=== PATIENT | female | born 1960 | race Caucasian/White ===

== ENCOUNTER → 2018-03-24 11:15 | Outpatient (CLI) | payer MEDICAID, SELFPAY ==
--- NOTE | 2018-03-24 11:12 | DI.REPORT_ITS ---
SYMPTOM/DIAGNOSIS: PAIN RIGHT SHOULDER: Comparison is made with February 03. 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 Spurring is seen at the AC joint. There has been no change from the previous exam.
== END ==
PROVIDERS: PCP Physician Assistant; Visit Provider Orthopaedic Surgery
DX: M25.511 Pain in right shoulder (principal); Z96.611 Presence of right artificial shoulder joint
CPT/HCPCS: 73030

== ENCOUNTER 2023-10-07 08:48 | Emergency (ER) | payer MEDICAID, SELFPAY ==
[2023-10-07 08:51] VITALS: BP 118/84; PULSE 66; RESP 18; TEMP 36.7
--- NOTE | 2023-10-07 09:14 | W.ED.GENAD ---
HPI General Date/Time Provider Initiated Documentation: 10/07/23 09:02. HPI Narrative: 62 year-old female presents to ED today by POV/ambulating with a chief complaint of L thumb pain ongoing for 2 months, and polydipsia in the setting of t2DM non-insulin dependent, lost her test kits with onset chronically. Patient states she used to be a patient of Daryl Dahl PA-C and thinks he has transferred to the area, looking to resume care, and is awaiting orthopaedic visit for this ongoing L thumb pain. Quality described as pain in her thumb, nodule in flexor tendon, shortening of the thumb, pain up the dorsal forearm, no radiation to numbness/tingling, deformity, endorses mild swelling- for her other problem she characterizes as sometimes having sweats, feeling thirsty and just run down and wants to make sure her diabetes is under control. Severity is described as moderate. Palliating factors include had a brace but it wasn't helping. Provoking factors include nothing specific. Patient not anticoagulated. Related Data Home Medications Medication Instructions Recorded Confirmed albuterol sulfate 90 mcg/actuation 2 puff inhalation Q8H 10/07/23 10/07/23 aerosol inhaler diclofenac sodium 1 % topical gel 2 g topical QID #100 grams 10/07/23 empagliflozin 25 mg tablet 25 mg PO ONCE 10/07/23 10/07/23 (Jardiance) fluticasone 500 mcg-salmeterol 50 1 inh inhalation BID PRN 10/07/23 10/07/23 mcg/dose blistr powdr for inhalation (Advair Diskus) glimepiride 2 mg tablet mg 10/07/23 glimepiride 4 mg tablet 4 mg PO BID 10/07/23 10/07/23 magnesium oxide 250 mg PO DAILY 10/07/23 10/07/23 Previous Rx's Medication Instructions Recorded diclofenac sodium 1 % topical gel 2 g topical QID #100 grams 10/07/23 Allergies Allergy/AdvReac Type Severity Reaction Status Date / Time haloperidol [From Haldol] Allergy Severe PARALYSIS Unverified 10/07/23 08:58 haloperidol lactate Allergy Severe PARALYSIS Unverified 10/07/23 08:58 [From Haldol] Latex, Natural Rubber Allergy Intermediate Hives Unverified 10/07/23 08:58 Penicillins Allergy Intermediate Hives Unverified 10/07/23 08:58 Sulfa (Sulfonamide Allergy Unknown Hives Unverified 10/07/23 08:58 Antibiotics) morphine AdvReac Intermediate Nausea Unverified 10/07/23 08:58 General Stated Complaint: GenMedical KANDIS: 3 Review of Systems All systems reviewed & are unremarkable except as noted in HPI and below Exam Narrative Exam Narrative: GENERAL APPEARANCE: Well-nourished, non-toxic, awake and alert, atraumatic, no acute distress. SKIN: Warm, pink, dry, intact, without rashes/lesions/ulcerations. HEAD: Normocephalic, atraumatic, normal hair distribution for gender/age. EYES: Pupils PERRLA, EOMs intact without nystagmus, normal conjunctiva, no exudates on lids/lashes. ENT: Nares patent, no circumoral cyanosis, no facial swelling NECK: Supple, trachea midline, painless cervical ROM. LUNGS/CHEST: Non-labored respirations, normal A/P diameter, symmetrical expansion, no chest wall deformity HEART (CV/PV): Regular rate, L radial pulse 2+, no peripheral edema, no JVD. ABDOMEN: Soft, non-distended, no guarding. MSK: Normal ROM, no swelling/deformity to bilateral UEs or LEs, moving all extremities without weakness, no cyanosis, spine midline without tenderness, normal curvature. L Hand: No deformity, mild tenderness on the flexor aspect of the thumb with a small nodule in the flexor tendon, no anatomical snuffbox tenderness, range of motion intact in all fingers with slight limited to the left, no crepitus, no skin changes, no lesions, forearm benign NEURO: Mental Status AAOx4 - alert to person, place, time, events No facial droop, no forehead involvement. Motor: No focal weakness - strength 5/5 in bilateral UEs and LEs, proximal and distal, symmetric. Sensory: sensation intact to light touch globally. Gait normal: patient ambulated without ataxia into ED room. PSYCH: euthymic, cooperative, pleasant, appropriate speech Course Vital Signs Vital signs: Vital Signs Temperature 36.7 C 10/07/23 08:51 Pulse 66 10/07/23 08:51 Respiratory Rate 18 10/07/23 08:51 Blood Pressure 118/84 10/07/23 08:51 Temperature 36.7 C 10/07/23 08:51 Temperature Source Oral 10/07/23 08:51 Pulse 66 10/07/23 08:51 Respiratory Rate 18 10/07/23 08:51 Respiratory Effort Normal, Non-Labored 10/07/23 09:06 Respiratory Depth Normal 10/07/23 09:06 Respiratory Pattern Normal 10/07/23 09:06 Blood Pressure 118/84 10/07/23 08:51 Oxygen Delivery Method Room Air 10/07/23 08:51 Oxygen Flow Rate 0 10/07/23 08:51 Pain Level 10 10/07/23 09:11 Medical Decision Making This dictation utilizes [id number] dictation software and may contain unedited grammatical errors. 62 y/o F presents to ED today with a chief complaint of L thumb pain for 2 months, and request for diabetes check- non-insulin dependent, having occasional sweats and notes excessive thirst. Patient is awaiting orthopaedics and is requesting to be reconnected to her former PCP Daryl Dahl PA-C. Patients' medical history: Type 2 diabetes. Family and social history: [facility] when her eyes, she will return there in October. Pertinent exam findings / vital signs include L Hand: No deformity, mild tenderness on the flexor aspect of the thumb with a small nodule in the flexor tendon, no anatomical snuffbox tenderness, range of motion intact in all fingers with slight limited to the left, no crepitus, no skin changes, no lesions, forearm benign. Differential / pathologies of concern include de Quervain's tendinopathy, Dupuytren contracture of left, arthritis, DKA. Diagnostic studies of: -CBC, CMP, VBG, x-ray left hand. -CBC is benign with elevated hemoglobin possible hemoconcentration -CMP shows a glucose of 213, mildly elevated BUN likely in the setting of mild dehydration -VBG shows no acidosis -XR Hand shows degenerative changes. Interventions of: -Removable thumb spica, refer ortho, refer PCP N[facility]. ED Course/Assessment/Plan: 62-year-old female presents with 2 months of left wrist and thumb pain, has a palpable nodule in the flexor tendon of the thumb but also having some pain up the dorsum of the wrist suspicious for possible de Quervain's, there is no sign of acute fracture or skin changes or infectious etiology, she requests a check for her diabetes which shows hyperglycemia at 213 but no signs of DKA-I did provide a thumb spica splint and put her on the list to be seen by orthopedics as well as forwarded her chart to Modesto Aguirre PA-C to possibly resume primary care for her chronic diabetes. Findings not consistent with infectious tendinopathy, septic arthritis, DKA, fracture. Disposition of Tendinopathy of Left Hand. Patient verbalized understanding of the plan and return to ED criteria and engaged in shared decision making. Medical Records Medical records reviewed: Yes I reviewed the patient's medical records. Imaging Data Radiologic Study: Attestation: I personally reviewed and interpreted this imaging study as follows: Imaging: X-Ray Radiologist's impression: EXAM: XR HAND LT COMPLETE CLINICAL HISTORY: L base of thumb pain. TECHNIQUE: 2D digital imaging was performed. Three views. COMPARISON: No exams were available for comparison FINDINGS: BONES: No acute fracture is present. No bony destructive lesion is seen. 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 Chronic appearing deformity of the 5th metacarpal could be congenital versus old fracture deformity. JOINTS: No dislocation present. Degenerative changes of the interphalangeal joints and 1st carpal metacarpal joint. Degenerative mild lateral subluxation. SOFT TISSUE: Normal. IMPRESSION: Degenerative changes greatest at the 1st carpal metacarpal joint. Lab Data Lab results reviewed: Yes I reviewed the patient's lab results. Labs: Laboratory Tests Range/Units 10/07/23 09:20 WBC (4.4-10.8) 10^3/uL 6.60 RBC (3.93-5.22) 10^6/uL 5.81 H Hgb (11.2-15.7) g/dL 17.1 H Hct (36.0-46.0) % 51.4 H MCV (80-95) fL 89 MCH (27.0-33.0) pg 29.4 MCHC (32.0-36.0) % 33.3 RDW (11.7-14.6) % 12.0 Plt Count (130-400) 10^3/uL 286 MPV (8.0-11.0) fL 9.9 Immature Gran % 0.3 Neutrophils % 54.6 Lymphocytes % 33.5 Monocytes % 8.3 Eosinophils % 2.7 Basophils % 0.6 Nucleated RBC % (0.0-0.3) % 0.0 Absolute Neutrophils (1.2-6.7) 10^3/uL 3.60 Absolute Lymphocytes (1.2-3.4) 10^3/uL 2.21 Absolute Monocytes (0.1-0.8) 10^3/uL 0.55 Absolute Eosinophils (0.0-0.7) 10^3/uL 0.18 Absolute Basophils (0.0-0.2) 10^3/uL 0.04 VBG pH (7.31-7.41) 7.41 VBG pCO2 (41-51) mmHg 37 L VBG pO2 mmHg 66 VBG HCO3 (23-28) mmol/L 24 VBG Total CO2 (24-29) mmol/L 20 L VBG O2 Saturation % 94 VBG Base Excess (-2-3) mmol/L -1 Sodium (136-145) mmol/L 139 Potassium (3.5-5.1) mmol/L 4.2 Chloride (98-107) mmol/L 104 Carbon Dioxide (21.0-32.0) mmol/L 23.1 Anion Gap (3-11) mmol/L 11.9 H BUN (7-18) mg/dL 25 H Creatinine (0.55-1.02) mg/dL 0.6 Est GFR (CKD-EPI 2020) (mL/min/1.73m2) 100.17 Glucose (74-106) mg/dL 213 H Calcium (8.5-10.1) mg/dL 9.5 Total Bilirubin (0.2-1.0) mg/dL 0.3 AST (15-37) U/L 9 L ALT (14-59) U/L 15 Alkaline Phosphatase (46-116) U/L 96 Total Protein (6.4-8.2) g/dL 7.7 Albumin (3.4-5.0) g/dL 3.6 Quality:SDOH Health Related Social Needs: No Data to Display PFSH All Active Problems (Updated 10/07/23 @ 10:32 by WILLOW Corea) Pain of left thumb (Acute) Social History Smoking/Tobacco Use Status: Never Smoking risk assessment performed?: Yes Alcohol Intake: never Substance use type: does not use Do you feel safe at home: Yes Discharge Plan Disposition Patient Disposition: Home Condition: Stable Discharge Details Clinical Impression: Pain of left thumb Primary Care Provider: Cali Beck ED Provider: Son Masterson Home Meds and New Rx's Prescriptions: New diclofenac sodium 1 % gel 2 g topical QID Qty: 100 0RF Rx Instructions: apply to single elbow, wrist or hand; for hand includes palm/fingers/back of hand Continued glimepiride 4 mg tablet 4 mg PO BID Patient Comments: TAKE ONE TABLET BY MOUTH TWICE A DAY WITH FIRST 2 MEALS OF THE DAY glimepiride 2 mg tablet fluticasone propion-salmeterol [Advair Diskus] 500-50 mcg/dose blister with device 1 inh INHALATION BID PRN albuterol sulfate 90 mcg/actuation HFA aerosol inhaler 2 puff INHALATION Q8H magnesium oxide 250 mg magnesium tablet 250 mg PO DAILY Patient Comments: TAKE ONE TABLET BY MOUTH EVERY DAY Jardiance 25 mg tablet 25 mg PO ONCE Patient Comments: TAKE ONE TABLET BY MOUTH EVERY DAY Discharge Instructions Instructions: Diclofenac (On the skin), Osteoarthritis (ED), De Quervain Disease (ED), Dupuytren's Contracture (ED) Additional Instructions: You were seen in the emergency department for the pain of your left thumb ongoing for a couple months. I am providing you a thumb spica splint and I have sent a prescription for topical anti-inflammatory gel called diclofenac. Please use therapeutic dosing of Tylenol (acetamenophen) & Advil (ibuprofen) in an alternating fashion as follows: Take 1000mg of Tylenol every 6 hours without missing doses- that is 4 times per day. [place] in between the Tylenol dosings, take 400-600mg of Advil also on a 6 hour schedule, that is also 4 times per day. The daily maximum dosing of Tylenol is 4000mg, and the daily maximum dosing of Advil is 2400mg. This is safe to do for weeks. Please note that some common cold medications & prescription pain medications may contain acetamenophen and you need to read OTC drug labels and factor that in to maximum daily dosings. You likely need to be seen by orthopedics, I have attached some possible tendinopathy educational packets on what could be going on with your thumb, your x-ray shows arthritis. You do have an elevated blood glucose but you are not in diabetic ketoacidosis. I am forwarding your chart to Modesto Aguirre PA-C in the hopes that you can resume care with him. Please continue your diabetes medicines as well as increase exercise and stay well-hydrated. Please return to the ED for any severe increase in the frequency of urination, excessive thirst, confusion, altered mental status, fever or other emergent concerns. Referrals: [facility] [Provider Group] (To be seen for tendinopathy of L thumb) Cali Beck [Primary Care Provider] - Modesto Dahl [ NON-[facility] STAFF PHYSICIAN] - (Patient wishes to resume care with you.) Discharge Data Discharge Date/Time-TO BE ENTERED AT DEPARTURE: 10/07/23 10:53
--- NOTE | 2023-10-07 09:15 | DI.RAD_ITS ---
Exam(s) XR HAND LT COMPLETE EXAM: XR HAND LT COMPLETE CLINICAL HISTORY: L base of thumb pain. TECHNIQUE: 2D digital imaging was performed. Three views. COMPARISON: No exams were available for comparison FINDINGS: BONES: No acute fracture is present. No bony destructive lesion is seen. 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 Chronic appearing deformity of the 5th metacarpal could be congenital young feng old fracture deformity. JOINTS: No dislocation present. Degenerative changes of the interphalangeal joints and 1st carpal met acarpal joint. Degenerative mild lateral subluxation. SOFT TISSUE: Normal. IMPRESSION: Degenerative changes greatest at the 1st carpal metacarpal joint. DATA REPOSITORY: RADIATION DOSE DELIVERED:
[2023-10-07 09:29] LABS: BE (Venous) -1 mmol/L (-2-3); HCO3 (Venous) 24 mmol/L (23-28); O2 Sat (Venous) 94 %; TCO2 (Venous) 20 mmol/L (24-29); pCO2 (Venous) 37 mmHg (41-51); pH (Venous) 7.41 (7.31-7.41); pO2 (Venous) 66 mmHg
[2023-10-07 09:30] LABS: Abs Immature Grans 0.02 10^3/uL (0.0-0.06); Absolute Basophil Count 0.04 10^3/uL (0.0-0.2); Absolute Eosinophil Count 0.18 10^3/uL (0.0-0.7); Absolute Lymphocyte Count 2.21 10^3/uL (1.2-3.4); Absolute Monocyte Count 0.55 10^3/uL (0.1-0.8); Basophils % 0.6; Eosinophils % 2.7; HCT 51.4 % (36.0-46.0); HGB 17.1 g/dL (11.2-15.7); Immature Grans % 0.3; Lymphocytes % 33.5; MCH 29.4 pg (27.0-33.0); MCHC 33.3 % (32.0-36.0); MCV 89 fL (80-95); MPV 9.9 fL (8.0-11.0); Monocytes % 8.3; Neutrophils % 54.6; Platelet Count 286 10^3/uL (130-400); RBC 5.81 10^6/uL (3.93-5.22); RDW-SD 39.3 fL
[2023-10-07 09:52] LABS: ALT 15 U/L (14-59); AST 9 U/L (15-37); Albumin 3.6 g/dL (3.4-5.0); Alkaline Phosphatase 96 U/L (46-116); Anion Gap 11.9 mmol/L (3-11); BUN 25 mg/dL (7-18); Bilirubin, Total 0.3 mg/dL (0.2-1.0); CO2 23.1 mmol/L (21.0-32.0); CREATININE 0.6 mg/dL (0.55-1.02); Calcium 9.5 mg/dL (8.5-10.1); Chloride 104 mmol/L (98-107); Estimated GFR 100.17 (mL/min/1.73m2); Glucose 213 mg/dL (74-106); Potassium 4.2 mmol/L (3.5-5.1); Sodium 139 mmol/L (136-145); Total Protein 7.7 g/dL (6.4-8.2)
[2023-10-07 10:50] VITALS: PULSE 73; RESP 18
== END 2023-10-07 10:53 | disposition home or self-care (01) ==
PROVIDERS: Emergency Provider Physician Assistant; PCP Physician Assistant
DX: M79.642 Pain in left hand (principal); R68.83 Chills (without fever); E11.65 Type 2 diabetes mellitus with hyperglycemia; Z79.84 Long term (current) use of oral hypoglycemic drugs
CPT/HCPCS: 29125; 80053; 82805; 99283; 73130; 85025

== ENCOUNTER 2023-10-15 15:26 | Outpatient (REF) | payer MEDICAID, SELFPAY ==
[2023-10-15 18:35] LABS: ESR 7 mm/hr (0-30)
[2023-10-15 18:43] LABS: C-Reactive Protein < 0.50 mg/dL (<or=0.5)
[2023-10-15 18:50] LABS: Hemoglobin A1C 9.3 % (<5.7)
== END 2023-10-15 15:27 | disposition home or self-care (01) ==
LOC: NCHCN 15:26
PROVIDERS: Referring Provider Student in an Organized Health Care Education/Training Program; Visit Provider Student in an Organized Health Care Education/Training Program
DX: E11.9 Type 2 diabetes mellitus without complications (principal); M79.645 Pain in left finger(s)
CPT/HCPCS: 85652; 83036; 86140

== ENCOUNTER → 2023-12-13 01:01 | Outpatient (CLI) | payer MEDICARE, MEDICAID, SELFPAY ==
--- NOTE | 2023-12-13 | DI.NM_ITS ---
APPROVED REPORT Ordering Provider:BELLE PATHAK, Contact Number: BMI: 0 Stress Test Details Test: Pharmacologic stress testing performed using 0.4 mg of regadenoson per 5 mL given IV over 10 s econds. Reason for pharmacologic stress test: physical limitation. Nuclear Acquisition: Rest Tc-99m/Stress Tc-99m 1 day Rest Isotope: Tc-99m Sestamibi. Dose: 10.0 Date: 12/13/2023 Injection Time: 0845 Stress Isotope: Tc-99m Sestamibi. Dose: 30.0 Date: 12/13/2023 Injection Time: 1017 HR Resting HR Supine: 90 bpm Max Heart Rate (APMHR): 155.663826 bpm Target HR (85% APMHR): 131.871262 bpm Max HR Achieved: 109 bpm % of APMHR: 70.32 Recovery HR: 101 bpm HR response to stress: Normal HR response to stress BP Resting BP Supine: 118/78 mmHg Max BP: 118/78 mmHg Recovery BP: 108/72 mmHg BP response to stress: Normal blood pressure response to stress. ECG Resting ECG: Sinus Rhythm Ectopy: PVC's, couplets Stress ECG: Sinus Rhythm ST Change: No significant ST segment changes noted Arrhythmia: PVC's, couplets Recovery ECG: Sinus Rhythm Recovery ST Change: No significant ST segment changes noted Recovery Arrhythmia: PVC's, couplets. Clinical Stress Symptoms: SOB. Angina Score: None Rate Pressure Product: [id number] Stress ECG Conclusion 1. Resting EKG showed IVCD, low voltage 2. Patient underwent testing using pharmacologic stress with regadenosan 3. Peak heart rate achieved was 70% of predicted for age 4. The elcetrocardiographic portion of the test was nondiagnostic 5. See MPI report Stress Test Summary STAGE HR BP SpO2 Symptoms NOTES Supine 90 118/78 1 min post Lexiscan injection 94 116/58 3 min post Lexiscan injection 103 112/68 6 min post Lexiscan injection 100 108/72 MPI Conclusion There is no myocardial ischemia There is apical thinning EF is 27%, global hypokinesis Radiologist Interpretation Radiologist Interpretation by: Balaji Khan MD Interpretation Date/Time: 12/13/2023 15:32:16
[2023-12-13] MEDS: Regadenoson 0.4 MG/5 ML SYR IVP (11:43)
== END ==
PROVIDERS: PCP Student in an Organized Health Care Education/Training Program; Visit Provider Student in an Organized Health Care Education/Training Program
DX: R07.9 Chest pain, unspecified (principal)
CPT/HCPCS: 78452; 93016; 93018; 93017; J2785